=== PATIENT | female | born 1985 | race Two or more races ===

== ENCOUNTER 2016-11-04 12:17 | Emergency (ER) | payer MEDICAID ==
[2016-11-04 12:24] VITALS: BP 112/58; O2SAT 98
[2016-11-04] MEDS ORDERED: predniSONE 20 MG TAB PO ONE (12:57)
--- NOTE | 2016-11-04 12:59 | EDPHY ---
H & P Stated Complaint: ? allergic reaction to face/rash/swelling last 4 days/not resolved with chauncey Time Seen by Provider: 11/04/16 12:31 HPI/ROS: Chief complaint: Rash History of present illness: 31-year-old female presents to the emergency department for evaluation of a rash. Patient reports the onset of symptoms over the last few days. She states the rash is slowly worsening. It now involves the neck. She has seen some rash on her extremities as well. She states the rash is very itchy. She has treated with oral Benadryl which has helped and topical Benadryl which has not helped. She has had associated runny nose and nasal congestion. She denies other associated signs or symptoms including no swelling of the mouth or throat, no difficulty swallowing or talking, no difficulty breathing. She denies any potential precipitating factors. - Personal History LMP (Females 10-55): Extended Cycle BCP/Inj Current Tetanus/Diphtheria Vaccine: Yes - Medical/Surgical History Hx Asthma: No Hx Chronic Respiratory Disease: No Hx Diabetes: No Hx Cardiac Disease: No Hx Renal Disease: No Hx Cirrhosis: No Hx Alcoholism: No Hx HIV/AIDS: No Hx Splenectomy or Spleen Trauma: No Other PMH: denies - Social History Smoking Status: Never smoked - Physical Exam Exam: General Appearance: Alert, nontoxic. Eyes: Pupils equal and round no injection. ENT: No angioedema. There is no hoarseness, no drooling, no trismus, no stridor. Respiratory: Chest is nontender, lungs are clear to auscultation. Cardiac: regular rate and rhythm. Musculoskeletal: Neck is supple and nontender. Extremities have full range of motion and are nontender. Skin: Diffuse urticarial rash to the face and neck. It is on both sides. Occasional urticaria noted on the extremities. No pustules or vesicles. Constitutional: Initial Vital Signs Temperature (C) 36.5 C 11/04/16 12:22 Heart Rate 69 11/04/16 12:22 Respiratory Rate 18 11/04/16 12:22 Blood Pressure 112/58 L 11/04/16 12:22 O2 Sat (%) 98 11/04/16 12:22 O2 Delivery Mode Room Air Allergies/Adverse Reactions: No Known Allergies Allergy (Verified 11/04/16 12:21) Home Medications: Medication Instructions Recorded BENADRYL 11/04/16 Nexplanon 11/04/16 predniSONE 40 mg PO DAILY 3 Days 11/04/16 Medical Decision Making ED Course/Re-evaluation: Patient is seen under the supervision of my secondary supervising physician Dr. Harry Isabel. Patient presents to the emergency department for rash to the face and neck and some involvement of the extremities. It is itchy. Does appear like a contact dermatitis or allergic reaction. No evidence of severe allergic reaction. Patient will be started on prednisone. She is asked to continue the Benadryl. She is asked to follow up with the primary care doctor for recheck. Return precautions are given. Patient voiced understanding and agreement with plan. Differential Diagnosis: Included but not limited to contact dermatitis, allergic reaction, unlikely cellulitis, herpes zoster - Data Points Medications Given: Discontinued Medications Prednisone (Prednisone) 40 mg PO EDNOW ONE Stop: 11/04/16 12:58 Last Admin: 11/04/16 13:04 Dose: 40 mg Departure - Departure Disposition: Home, Routine, Self-Care Clinical Impression: Rash Condition: Good Instructions: Acute Rash (ED) Additional Instructions: Follow-up with her primary care doctor for recheck. Use an [id number] antihistamine such as Benadryl as directed for the next 2-3 days for symptom control If symptoms worsen or new symptoms develop return to the emergency room for recheck Referrals: [facility],. [Clinic] - As per Instructions Prescriptions: predniSONE 40 mg PO DAILY 3 Days
[2016-11-04 13:06] VITALS: PULSE 68; RESP 16; TEMP 97.5
== END 2016-11-04 13:06 | disposition home or self-care (01) ==
DX: R21 Rash and other nonspecific skin eruption (principal)